=== PATIENT | female | born 1950 | race Caucasian/White ===

== ENCOUNTER 2017-02-13 23:35 | Inpatient (IN) | payer OTHER ==
[~2017-02-13] VITALS: Ht 154.9 cm; Wt 83.1 kg
[2017-02-14] MEDS ORDERED: SODIUM CHLORIDE 0.9% 1,000 ML IV ONE (00:13)
[2017-02-14 01:27] LABS: BASOPHILS % 0.2 % (0.0-2.0); HEMATOCRIT. 48.7 % (36.0-48.0); HEMOGLOBIN. 16.2 g/dL (12.0-16.0); LYMPHOCYTES % 18.4 % (20.0-50.0); MEAN CORPUSCULAR HEMOGLOBIN 28.4 pg (28.0-32.0); MEAN CORPUSCULAR VOLUME 85.5 fL (81.0-99.0); MEAN PLATELET VOLUME 9.7 fl (7.4-10.4); MONOCYTES % 9.4 % (2.0-8.0); PLATELET 342 x1000/uL (130-400); RED CELL DISTRIBUTION WIDTH 13.9 % (11.6-14.6)
[2017-02-14 01:37] LABS: CARBON DIOXIDE 28 mEq/L (21-32); CHLORIDE 104 mEq/L (98-107); ETHANOL BLOOD < 10 mg/dL; TROPONIN I 0.03 ng/mL (0.00-0.04)
[2017-02-14 02:22] LABS: *AMPHETAMINES SCREEN URINE NEGATIVE (NEGATIVE); *BARBITURATES SCREEN URINE NEGATIVE (NEGATIVE); *BENZODIAZEPINES SCREEN URINE PRESUMTIVE POSITIVE (NEGATIVE); *COCAINE SCREEN URINE NEGATIVE (NEGATIVE); CANNABINOID URINE SCREEN NEGATIVE (NEGATIVE); METHADONE URINE SCREEN NEGATIVE (NEGATIVE); OPIATES URINE SCREEN PRESUMTIVE POSITIVE (NEGATIVE); PHENCYCLIDINE URINE SCREEN NEGATIVE (NEGATIVE)
[2017-02-14] MEDS ORDERED: KCL 20MEQ/100ML PREMIX 100 ML IV NR (02:30)
[2017-02-14] MEDS ORDERED: POTASSIUM BICARB/CIT ACID 25 MEQ TABLET.EFF PO NR (02:30)
[2017-02-14] MEDS: SODIUM CHLORIDE 0.9% 1000ML BAG (SEPSIS BOLUS) IV NR ×2 (03:00→03:24)
[2017-02-14] MEDS ORDERED: BROM2.5T19 PO (06:27)
[2017-02-14] MEDS ORDERED: VALP250S4 PO (06:27)
[2017-02-14] MEDS ORDERED: HYDR15CR37 PO (06:27)
[2017-02-14] MEDS ORDERED: HYDR28OI2 PO (06:27)
[2017-02-14 07:43] VITALS: BP 177/55
[2017-02-14 08:03] VITALS: BP 177/55
[2017-02-14] MEDS ORDERED: POTASSIUM CHLORIDE 20MEQ TABLET SR PO SCH (08:15)
[2017-02-14] MEDS ORDERED: IPRATROPIUM/ALBUTEROL 0.5-3(2.5)MG/3ML NEB INH PRN (08:15)
[2017-02-14] MEDS ORDERED: ACETAMINOPHEN 650MG/20.3ML UDC GT PRN (08:15)
[2017-02-14] MEDS ORDERED: MAGNESIUM/ALUMINUM HYDROXIDE/SIMETHICONE 30ML UDC PO PRN (08:15)
[2017-02-14] MEDS ORDERED: OMEPRAZOLE 20MG CAPSULE EXTENDED RELEASE PO SCH (08:15)
[2017-02-14] MEDS ORDERED: ZOLPIDEM TARTRATE 5MG TABLET PO PRN (08:15)
[2017-02-14] MEDS ORDERED: HYDROMORPHONE HCL/PF 2MG/ML CPJ IV PRN (08:15)
[2017-02-14] MEDS: DOCUSATE SODIUM 250MG CAPSULE PO SCH ×2 (09:00→09:53)
[2017-02-14] MEDS ORDERED: METHYLPREDNISOLONE SOD SUCC 125 MG/2 ML VIAL IV SCH (09:00)
[2017-02-14] MEDS: ENOXAPARIN 40MG/0.4ML SYR SUBCUT SCH ×2 (09:00→09:54)
[2017-02-14] MEDS ORDERED: HYDROCORTISONE 20MG TABLET PO SCH (09:00)
[2017-02-14] MEDS: VALPROIC ACID 250MG CAPSULE PO SCH (09:53)
[2017-02-14] MEDS: BROMOCRIPTINE MESYLATE 2.5 MG TABLET PO SCH (09:53)
[2017-02-14] MEDS ORDERED: MVI, ADULT NO.1 10 ML, FOLIC ACID 1 MG, THIAMINE HCL 100 MG in SODIUM CHLORIDE 0.9% 1,0... IV SCH ×4 (10:00)
[2017-02-14] MEDS ORDERED: DEXTROSE 50% WATER 50ML SYRINGE IV PRN ×2 (10:00)
[2017-02-14] MEDS ORDERED: HYDROCORTISONE SOD SUCCINATE 100 MG/2 ML VIAL IV SCH (11:00)
[2017-02-14 11:32] LABS: CLARITY URINE CLEAR (CLEAR); COLOR URINE YELLOW (YELLOW); GLUCOSE URINE NEGATIVE (NEGATIVE); KETONES URINE NEGATIVE (NEGATIVE); LEUKOCYTE ESTERASE URINE 2+ (NEGATIVE); NITRITE URINE NEGATIVE (NEGATIVE); OCCULT BLOOD URINE 1+ (NEGATIVE); PH URINE 6.5 (4.5-8.0); PROTEIN URINE 1+ (NEGATIVE); SPECIFIC GRAVITY URINE 1.018 (1.005-1.030); UROBILINOGEN URINE 0.2 E.U./dL (0.2-1.0)
[2017-02-14] MEDS: BLOOD SUGAR DIAGNOSTIC STRIP TEST SCH ×3 (11:51→20:54)
[2017-02-14] MEDS: INSULIN LISPRO 100 UNITS/ML SUBCUT SCH ×3 (11:52→21:00)
[2017-02-14 12:00] VITALS: BP 164/81
[2017-02-14] MEDS: IPRATROPIUM/ALBUTEROL 0.5-3(2.5)MG/3ML NEB HHN SCH ×2 (13:06→16:00)
[2017-02-14 16:00] VITALS: BP 177/77
[2017-02-14] MEDS: CLONIDINE 0.1MG TABLET PO PRN (17:42)
[2017-02-14] MEDS: ACETAMINOPHEN 325MG TABLET PO PRN (17:42)
[2017-02-14] MEDS: HYDROCORTISONE 20MG TABLET PO SCH (17:42)
[2017-02-14 17:53] LABS: CREATINE KINASE MB FRACTION 1.7 ng/mL (0.5-3.6); TROPONIN I 0.04 ng/mL (0.00-0.04)
[2017-02-14] MEDS: SODIUM CHL 0.45% + KCL 20MEQ/L 1,000 ML IV SCH ×2 (18:04→22:58)
[2017-02-14 18:57] LABS: BG BASE EXCESS 0.3 mmol/L (-2.0-2.0); BG CARBOXYHEMOGLOBIN 1.5 % (0.5-1.5); BG DEOXYHEMOGLOBIN 6.9 % (0.0-5.0); BG FRACTION INSPIRED OXYGEN 21; BG HCO3 ACT 22.8 mmol/L (22.0-26.0); BG METHEMOGLOBIN 0.3 % (0.0-1.5); BG OXYHEMOGLOBIN 91.3 % (94.0-97.0); BG PCO2 30.9 mmHg (35.0-45.0); BG PH 7.485 (7.350-7.450); BG PO2 65.8 mmHg (75.0-100.0); BG SAMPLE SITE RIGHT RADIAL; BG VENT MODE ROOM AIR
[2017-02-14 20:00] VITALS: BP 138/50
[2017-02-14] MEDS: CEFTRIAXONE 1 G PREMIX 50 ML IV SCH (20:25)
[2017-02-14 23:18] LABS: CREATINE KINASE MB FRACTION 1.6 ng/mL (0.5-3.6); TROPONIN I 0.05 ng/mL (0.00-0.04)
[2017-02-15] VITALS: BP 132/61
[2017-02-15 04:00] VITALS: BP 132/62
[2017-02-15] MEDS: IPRATROPIUM/ALBUTEROL 0.5-3(2.5)MG/3ML NEB HHN SCH ×5 (05:33→20:00)
[2017-02-15] MEDS: BLOOD SUGAR DIAGNOSTIC STRIP TEST SCH ×4 (07:04→21:19)
[2017-02-15] MEDS: OMEPRAZOLE 20MG CAPSULE EXTENDED RELEASE PO SCH (07:05)
[2017-02-15 07:39] LABS: BASOPHILS % 0.2 % (0.0-2.0); EOSINOPHILS % 0.2 % (0.0-5.0); HEMATOCRIT. 44.2 % (36.0-48.0); HEMOGLOBIN. 14.3 g/dL (12.0-16.0); LYMPHOCYTES % 53.3 % (20.0-50.0); MEAN CORPUSCULAR HEMOGLOBIN 28.1 pg (28.0-32.0); MEAN CORPUSCULAR VOLUME 86.7 fL (81.0-99.0); MEAN PLATELET VOLUME 9.4 fl (7.4-10.4); MONOCYTES % 7.7 % (2.0-8.0); NEUTROPHILS % 38.6 % (40.0-76.0); PLATELET 291 x1000/uL (130-400); RED CELL DISTRIBUTION WIDTH 14.1 % (11.6-14.6)
[2017-02-15] MEDS: INSULIN LISPRO 100 UNITS/ML SUBCUT SCH ×4 (07:50→21:00)
[2017-02-15 08:00] VITALS: BP 135/78
[2017-02-15 08:34] LABS: CARBON DIOXIDE 26 mEq/L (21-32); CHLORIDE 108 mEq/L (98-107)
[2017-02-15] MEDS: DOCUSATE SODIUM 250MG CAPSULE PO SCH (08:34)
[2017-02-15] MEDS: ENOXAPARIN 40MG/0.4ML SYR SUBCUT SCH (08:35)
[2017-02-15] MEDS: VALPROIC ACID 250MG CAPSULE PO SCH (08:40)
[2017-02-15] MEDS: BROMOCRIPTINE MESYLATE 2.5 MG TABLET PO SCH (08:40)
[2017-02-15] MEDS ORDERED: POTASSIUM CHLORIDE 20MEQ TABLET SR PO SCH (09:00)
[2017-02-15] MEDS ORDERED: HYDROCORTISONE 20MG TABLET PO SCH (09:00)
[2017-02-15] MEDS ORDERED: MAGNESIUM 2 G PREMIX 50 ML IV PRN (09:15)
[2017-02-15] MEDS ORDERED: POTASSIUM CHLORIDE 20MEQ TABLET SR PO ONE (09:15)
[2017-02-15] MEDS ORDERED: IOHEXOL-350 100 ML BOTTLE ONE (10:43)
[2017-02-15] MEDS ORDERED: POTASSIUM CHLORIDE INJ 40 MEQ in DEXT 5% WATER 250 ML IV SCH (11:00)
[2017-02-15 11:54] VITALS: BP 131/65
[2017-02-15] MEDS: SODIUM CHL 0.45% + KCL 20MEQ/L 1,000 ML IV SCH (12:36)
[2017-02-15 16:19] VITALS: BP 173/80
[2017-02-15] MEDS: POTASSIUM CHLORIDE 20MEQ TABLET SR PO SCH (17:34)
[2017-02-15] MEDS: ACETAMINOPHEN 325MG TABLET PO PRN (17:35)
[2017-02-15] MEDS: HYDROCORTISONE 20MG TABLET PO SCH (17:35)
[2017-02-15] MEDS: CLONIDINE 0.1MG TABLET PO PRN (17:35)
[2017-02-15 20:42] VITALS: BP 129/73
[2017-02-15] MEDS: CEFTRIAXONE 1 G PREMIX 50 ML IV SCH (21:55)
[2017-02-16] MEDS: IPRATROPIUM/ALBUTEROL 0.5-3(2.5)MG/3ML NEB HHN SCH ×6 (04:00→20:00)
[2017-02-16] MEDS: SODIUM CHL 0.45% + KCL 20MEQ/L 1,000 ML IV SCH ×2 (06:51→18:15)
[2017-02-16] MEDS: POTASSIUM CHLORIDE 20MEQ TABLET SR PO SCH ×2 (06:54→18:17)
[2017-02-16] MEDS: OMEPRAZOLE 20MG CAPSULE EXTENDED RELEASE PO SCH (06:54)
[2017-02-16] MEDS: BLOOD SUGAR DIAGNOSTIC STRIP TEST SCH ×4 (07:05→20:00)
[2017-02-16 07:22] LABS: BASOPHILS % 0.3 % (0.0-2.0); EOSINOPHILS % 0.6 % (0.0-5.0); HEMATOCRIT. 49.2 % (36.0-48.0); HEMOGLOBIN. 16.2 g/dL (12.0-16.0); LYMPHOCYTES % 46.6 % (20.0-50.0); MEAN CORPUSCULAR HEMOGLOBIN 28.5 pg (28.0-32.0); MEAN CORPUSCULAR VOLUME 86.6 fL (81.0-99.0); MEAN PLATELET VOLUME 9.5 fl (7.4-10.4); MONOCYTES % 8.1 % (2.0-8.0); NEUTROPHILS % 44.4 % (40.0-76.0); PLATELET 347 x1000/uL (130-400); RED BLOOD CELL COUNT 5.68 mill/uL (4.2-5.4); RED CELL DISTRIBUTION WIDTH 14.4 % (11.6-14.6)
[2017-02-16] MEDS: INSULIN LISPRO 100 UNITS/ML SUBCUT SCH ×4 (07:50→20:00)
[2017-02-16 08:09] LABS: CHLORIDE 105 mEq/L (98-107)
[2017-02-16 08:17] LABS: CARBON DIOXIDE 28 mEq/L (21-32)
[2017-02-16] MEDS: DOCUSATE SODIUM 250MG CAPSULE PO SCH (09:00)
[2017-02-16] MEDS: ENOXAPARIN 40MG/0.4ML SYR SUBCUT SCH ×2 (09:00→10:32)
[2017-02-16] MEDS: HYDROCORTISONE 20MG TABLET PO SCH ×2 (09:13→18:17)
[2017-02-16] MEDS: VALPROIC ACID 250MG CAPSULE PO SCH (09:14)
[2017-02-16] MEDS: BROMOCRIPTINE MESYLATE 2.5 MG TABLET PO SCH (09:14)
[2017-02-16] MEDS: ONDANSETRON HCL 4MG/2ML VIAL IV PRN ×2 (10:28→19:46)
[2017-02-16] MEDS: AZITHROMYCIN 500 MG in DEXT 5% WATER 250 ML IV SCH (10:32)
[2017-02-16] MEDS ORDERED: LEVOFLOXACIN 500MG PREMIX 100 ML IV SCH (18:00)
[2017-02-16 20:00] VITALS: BP 114/61
[2017-02-16] MEDS: METRONIDAZOLE 500MG TABLET PO SCH (21:42)
[2017-02-16] MEDS ORDERED: CEFTRIAXONE 2 G in DEXTROSE 5% WATER 50 ML IV SCH (22:00)
[2017-02-17 00:33] VITALS: BP 138/51
[2017-02-17 04:00] VITALS: BP 125/69
[2017-02-17] MEDS: IPRATROPIUM/ALBUTEROL 0.5-3(2.5)MG/3ML NEB HHN SCH ×3 (04:00→09:55)
[2017-02-17] MEDS: ONDANSETRON HCL 4MG/2ML VIAL IV PRN (04:21)
[2017-02-17] MEDS: SODIUM CHL 0.45% + KCL 20MEQ/L 1,000 ML IV SCH (04:22)
[2017-02-17] MEDS: METRONIDAZOLE 500MG TABLET PO SCH (05:53)
[2017-02-17 06:42] LABS: BASOPHILS % 0.4 % (0.0-2.0); EOSINOPHILS % 1.1 % (0.0-5.0); HEMATOCRIT. 46.8 % (36.0-48.0); HEMOGLOBIN. 15.6 g/dL (12.0-16.0); MEAN CORPUSCULAR HEMOGLOBIN 28.6 pg (28.0-32.0); MEAN CORPUSCULAR VOLUME 85.9 fL (81.0-99.0); MEAN PLATELET VOLUME 9.7 fl (7.4-10.4); MONOCYTES % 10.8 % (2.0-8.0); NEUTROPHILS % 42.7 % (40.0-76.0); PLATELET 283 x1000/uL (130-400); RED BLOOD CELL COUNT 5.45 mill/uL (4.2-5.4); RED CELL DISTRIBUTION WIDTH 14.2 % (11.6-14.6)
[2017-02-17] MEDS: BLOOD SUGAR DIAGNOSTIC STRIP TEST SCH (07:00)
[2017-02-17] MEDS: INSULIN LISPRO 100 UNITS/ML SUBCUT SCH (07:00)
[2017-02-17 07:53] LABS: CARBON DIOXIDE 26 mEq/L (21-32); CHLORIDE 106 mEq/L (98-107)
[2017-02-17 08:57] VITALS: BP 120/48
[2017-02-17] MEDS ORDERED: FAMOTIDINE 20MG TABLET PO SCH (09:00)
[2017-02-17] MEDS: BROMOCRIPTINE MESYLATE 2.5 MG TABLET PO SCH (09:31)
[2017-02-17] MEDS: HYDROCORTISONE 20MG TABLET PO SCH (09:32)
[2017-02-17] MEDS: VALPROIC ACID 250MG CAPSULE PO SCH (09:32)
[2017-02-17] MEDS: AZITHROMYCIN 500 MG in DEXT 5% WATER 250 ML IV SCH (09:34)
[2017-02-17] MEDS: ENOXAPARIN 40MG/0.4ML SYR SUBCUT SCH (09:35)
[2017-02-17 10:58] VITALS: BP 120/48
== END 2017-02-17 12:15 | disposition home or self-care (01) | DRG 871 ==
LOC: ER 23:35 → 6WST 02-14 02:29 → ENRESERV 02-14 03:45
PROVIDERS: ADMIT Internal Medicine Geriatric Medicine; ATTEND Internal Medicine Geriatric Medicine
DX: A41.9 Sepsis, unspecified organism (principal); J18.9 Pneumonia, unspecified organism; E27.2 Addisonian crisis; D75.1 Secondary polycythemia; E24.9 Cushing's syndrome, unspecified; N39.0 Urinary tract infection, site not specified; E83.42 Hypomagnesemia; I10 Essential (primary) hypertension; E87.6 Hypokalemia; R73.9 Hyperglycemia, unspecified; J06.9 Acute upper respiratory infection, unspecified; B96.89 Other specified bacterial agents as the cause of diseases classified elsewhere; K29.00 Acute gastritis without bleeding; Z79.52 Long term (current) use of systemic steroids; Q89.1 Congenital malformations of adrenal gland; Z72.89 Other problems related to lifestyle
CPT/HCPCS: 36415; 36600; 71010; 71275; 80048; 80053; 80305; 81001; 82270; 82375; 82533; 82553; 82805; 82962; 83605; 83690; 83735; 83880; 84443; 84484; 85025; 85379; 87015; 87040; 87045; 87077; 87086; 87186; 87427; 87449; 87493; 87804; 93005; 93306; 93970; 94640; 96360; 99285; G0482; J0456; J0696; J1650; J1720; J1815; J1956; J2405; J3411; J3480; J3490; J7030; J7060; J7620; Q9967